=== PATIENT | male | born 1955 | race Caucasian/White ===

== ENCOUNTER 2019-08-21 12:57 | Inpatient (IN) | payer OTHER ==
[~2019-08-21] VITALS: Ht 190.5 cm; Wt 104.0 kg
[2019-08-21] MEDS ORDERED: SODIUM CHLORIDE 0.9% 1,000ML IVBOLUS ONE (13:30)
[2019-08-21] MEDS ORDERED: SODIUM CHLORIDE FLUSH 10ML SYR IVF ONE (13:30)
[2019-08-21 13:56] LABS: BASOPHILS # (AUTO) 0.01 x10^3/uL (0-0.1); BASOPHILS % (AUTO) 0 % (0-1); EOSINOPHILS # (AUTO) 0.04 x10^3/uL (0-0.4); EOSINOPHILS % (AUTO) 0 % (1-7); LYMPHOCYTES # (AUTO) 1.55 x10^3/uL (1-3.4); LYMPHOCYTES % (AUTO) 16 % (22-44); MD NO; MEAN CORPUSCULAR HEMOGLOBIN 30.9 pg (27.5-34.5); MEAN CORPUSCULAR HGB CONC 33.4 g/dL (33.2-36.2); MEAN CORPUSCULAR VOLUME 92.5 fL (81-97); MEAN PLATELET VOLUME 7.9 fL (7.4-10.4); MONOCYTES # (AUTO) 0.75 x10^3/uL (0.2-0.8); MONOCYTES % (AUTO) 8 % (2-9); NEUTROPHILS # (AUTO) 7.54 x10^3/uL (1.8-6.8); NEUTROPHILS % (AUTO) 76 % (42-75); PLATELET COUNT 340 x10^3/uL (130-400); RED BLOOD COUNT 5.51 x10^6/uL (4.38-5.82); RED CELL DISTRIBUTION WIDTH 12.4 % (9.4-14.8)
--- NOTE | 2019-08-21 14:00 | NUR ---
PT AMBULATED TO RESTROOM WITH STEADY GAIT TO PROVIDE URINE SAMPLE. PIV PLACE, LABS COLLECTED, IVF RUNNING. UA AND LABS SENT TO LAB. PT C/O INTERMITTENT PAIN, BUT REFUSES PAIN MEDS AT THIS TIME.
[2019-08-21 14:06] LABS: ALANINE AMINOTRANSFERASE 31 U/L (12-78); ALBUMIN 3.5 g/dL (3.4-5.0); ANION GAP 7 mmol/L (5-15); CALCIUM 9.6 mg/dL (8.5-10.1); CHLORIDE 106 mmol/L (98-107)
[2019-08-21 14:09] LABS: ALKALINE PHOSPHATASE 115 U/L (45-117); BILIRUBIN,TOTAL 0.7 mg/dL (0.2-1.0); CREATININE 1.09 mg/dL (0.7-1.3); TOTAL PROTEIN 9.1 g/dL (6.4-8.2)
--- NOTE | 2019-08-21 14:23 | NUR ---
PT TAKEN TO CT.
[2019-08-21] MEDS ORDERED: OMNIPAQUE 350 MG/ML, 100ML BOTTLE ONE (14:35)
--- NOTE | 2019-08-21 14:49 | NUR ---
MD AT BEDSIDE TO UPDATE PT ON POC. PT TO HAVE SURGERY FOR APPEDECTOMY.
[2019-08-21 14:51] LABS: MICROSCOPIC INDICATED
[2019-08-21 14:52] LABS: CULTURE INDICATED? YES
[2019-08-21] MEDS ORDERED: CEFOTETAN PMX 1GM/50ML 50 ML ONE (14:55)
[2019-08-21] MEDS ORDERED: CEFOTETAN PMX 1GM/50ML 50 ML IV ONE (15:00)
[2019-08-21] MEDS ORDERED: SODIUM CHLORIDE 0.9% 1,000 ML IV ONE (15:06)
[2019-08-21] MEDS ORDERED: MORPHINE SULFATE 4 MG/ML, 1ML IVPush PRN (15:30)
[2019-08-21] MEDS ORDERED: SODIUM CHLORIDE FLUSH 10ML SYR IVF PRN (15:30)
[2019-08-21] MEDS ORDERED: ONDANSETRON 2MG/ML, 2ML IVPush PRN ×2 (15:30→18:30)
--- NOTE | 2019-08-21 15:44 | NUR ---
REPORT GIVEN TO NAIF RN IN SAME DAY SURGERY.
--- NOTE | 2019-08-21 15:44 | NUR ---
LATE ENTRY: IV ABX ADMIN PER JUN. IVF RUNNING PER JUN. [facility]
--- NOTE | 2019-08-21 16:05 | NUR ---
PT TAKEN TO SURGERY
[2019-08-21] MEDS ORDERED: BUPIVACAINE/PF-EPI 0.5% 1:200K ONE (16:27)
[2019-08-21] MEDS ORDERED: FENTANYL PF 100 MCG/2ML ONE ×2 (16:50→18:32)
[2019-08-21] MEDS ORDERED: MIDAZOLAM 1 MG/ML, 2ML ONE (16:50)
[2019-08-21] MEDS ORDERED: SUCCINYLCHOLINE 20 MG/ML, 10ML ONE (16:56)
[2019-08-21] MEDS ORDERED: GLYCOPYRROLATE 0.2MG/1ML, 5ML ONE (16:56)
[2019-08-21] MEDS ORDERED: PROPOFOL 10 MG/ML, 20ML ONE (16:56)
[2019-08-21] MEDS ORDERED: DEXAMETHASONE 4 MG/ML, 1ML ONE (16:56)
[2019-08-21] MEDS ORDERED: CEFAZOLIN 1,000 MG ONE (16:56)
[2019-08-21] MEDS ORDERED: ROCURONIUM 10 MG/ML,10ML ONE (16:56)
[2019-08-21] MEDS ORDERED: LIDOCAINE PF 2%, 5ML ONE (16:56)
[2019-08-21] MEDS ORDERED: ONDANSETRON 2MG/ML, 2ML ONE ×2 (16:56→18:17)
[2019-08-21] MEDS ORDERED: NEOSTIGMINE 1 MG/ML, 10ML ONE (16:56)
[2019-08-21] MEDS ORDERED: PROMETHAZINE 25 MG/ML, 1ML ONE (18:17)
[2019-08-21] MEDS ORDERED: HYDROmorphone 1 MG/ML, 1ML INJ IVPush PRN (18:30)
[2019-08-21] MEDS ORDERED: PROMETHAZINE 25 MG/ML, 1ML IVPush PRN (18:30)
[2019-08-21] MEDS ORDERED: ACETAMINOPHEN 325 MG TABLET PO PRN (18:30)
[2019-08-21] MEDS ORDERED: OXYcodone 5 MG/5 ML ORAL.SOL UDC PO PRN (18:30)
[2019-08-21] MEDS ORDERED: FENTANYL PF 100 MCG/2ML IV PRN (18:30)
[2019-08-21] MEDS ORDERED: HYDROmorphone 1 MG/ML, 1ML INJ ONE (18:32)
[2019-08-21 19:42] VITALS: BP 134/79
[2019-08-21] MEDS ORDERED: ONDANSETRON 4 MG TABLET PO PRN (20:00)
[2019-08-21] MEDS ORDERED: OXYcodone IR 5MG TABLET PO PRN (20:00)
[2019-08-21] MEDS ORDERED: ONDANSETRON 2MG/ML, 2ML IV PRN (20:00)
[2019-08-21] MEDS ORDERED: morphine SULFATE 10 MG/ML, 1ML IV PRN (20:00)
[2019-08-21] MEDS ORDERED: ONDANSETRON ODT 4 MG PO PRN (20:00)
[2019-08-21] MEDS: PIPERACILLIN/TAZO/PMX 4.5GM 100 ML IV SCH (22:40)
[2019-08-21] MEDS: SODIUM CHLORIDE 0.9% 1,000 ML IV SCH (23:00)
[2019-08-22 00:34] VITALS: BP 104/66
[2019-08-22 04:10] VITALS: BP 102/56
[2019-08-22] MEDS: PIPERACILLIN/TAZO/PMX 4.5GM 100 ML IV SCH ×4 (04:55→22:44)
[2019-08-22 06:07] LABS: BASOPHILS # (AUTO) 0.02 x10^3/uL (0-0.1); BASOPHILS % (AUTO) 0 % (0-1); EOSINOPHILS # (AUTO) 0.01 x10^3/uL (0-0.4); EOSINOPHILS % (AUTO) 0 % (1-7); LYMPHOCYTES # (AUTO) 1.66 x10^3/uL (1-3.4); LYMPHOCYTES % (AUTO) 16 % (22-44); MD NO; MEAN CORPUSCULAR HEMOGLOBIN 31.6 pg (27.5-34.5); MEAN CORPUSCULAR HGB CONC 33.8 g/dL (33.2-36.2); MEAN CORPUSCULAR VOLUME 93.6 fL (81-97); MEAN PLATELET VOLUME 8.1 fL (7.4-10.4); MONOCYTES # (AUTO) 0.86 x10^3/uL (0.2-0.8); MONOCYTES % (AUTO) 8 % (2-9); NEUTROPHILS # (AUTO) 7.65 x10^3/uL (1.8-6.8); NEUTROPHILS % (AUTO) 75 % (42-75); PLATELET COUNT 310 x10^3/uL (130-400); RED BLOOD COUNT 4.74 x10^6/uL (4.38-5.82); RED CELL DISTRIBUTION WIDTH 12.9 % (9.4-14.8)
[2019-08-22 07:01] VITALS: BP 101/60
[2019-08-22] MEDS: SODIUM CHLORIDE 0.9% 1,000 ML IV SCH ×2 (09:35→21:21)
[2019-08-22] MEDS ORDERED: ACETAMINOPHEN 325 MG TABLET PO PRN (11:30)
[2019-08-22 13:08] VITALS: BP 106/58
[2019-08-22 19:35] VITALS: BP 135/76
[2019-08-23 00:41] VITALS: BP 118/47
[2019-08-23] MEDS: PIPERACILLIN/TAZO/PMX 4.5GM 100 ML IV SCH ×2 (04:33→09:43)
[2019-08-23 08:20] VITALS: BP 114/70
[2019-08-23] MEDS: SODIUM CHLORIDE 0.9% 1,000 ML IV SCH (08:23)
[2019-08-23] MEDS ORDERED: KETOROLAC 10MG TABLET PO ONE (11:00)
[2019-08-23] MEDS ORDERED: OXYC5CAP2 PO (11:59)
[2019-08-23] MEDS ORDERED: AMOX1TAB64 PO (12:00)
== END 2019-08-23 12:27 | disposition home or self-care (01) | DRG 339 ==
LOC: ED 13:54 → EDIP 15:06 → 4NE 19:36
PROVIDERS: ADMIT Surgery; ATTEND Surgery
PROC: 0D9J4ZZ Drainage of Appendix, Percutaneous Endoscopic Approach (ICD-10-PCS; 2019-08-21)
PROC: 0DTJ4ZZ Resection of Appendix, Percutaneous Endoscopic Approach (ICD-10-PCS; principal; 2019-08-21 16:45)
DX: K35.33 Acute appendicitis with perforation, localized peritonitis, and gangrene, with abscess (principal); K56.7 Ileus, unspecified; Z82.5 Family history of asthma and other chronic lower respiratory diseases; Z87.891 Personal history of nicotine dependence
CPT/HCPCS: 36415; 74177; 80053; 81001; 83690; 85025; 87070; 87075; 87086; 87205; 88304; 93005; 99285; C1729; G0378; J0690; J1100; J1170; J2250; J2405; J2543; J2550; J2704; J2710; J3010; Q9967; J0330; J3490; J7030